=== PATIENT | female | born 1960 | race Caucasian/White ===

== ENCOUNTER → 2023-05-17 | Outpatient (CLI) | payer MEDICARE, MEDICAID, SELFPAY ==
--- NOTE | 2023-05-17 13:32 | US_ITS ---
STUDY: RENAL ULTRASOUND - COMPLETE REASON FOR EXAM: Female, 63 years old. UTI TECHNIQUE: Ultrasound evaluation of the kidneys was performed with real-time and static freire-scale imaging. COMPARISON: None. FINDINGS: RIGHT KIDNEY: with mild renal atrophy. The right kidney measures 7.9 cm x 4.1 cm x 3.6 cm. There is diffuse thinning of the renal cortex. The renal cortex measures 0.8 cm. There is no right renal mass or cyst. There are no right renal calculi. There is no right hydronephrosis. DISTAL RIGHT URETER: There is non-visualization of the distal right ureter. There is no demonstrated right ureterovesical junction calculus. There is a visualized right ureteral jet. LEFT KIDNEY: with mild renal atrophy. The left kidney measures 8.6 cm x 3.6 x 4.7 cm. There is diffuse thinning of the renal cortex. The renal cortex measures 0.7 cm. There is a 1.2 cm x 1 cm x 0.8 cm cyst in the left kidney. There are no left renal calculi. There is no left hydronephrosis. DISTAL LEFT URETER: There is non-visualization of the distal left ureter. There is no demonstrated left ureterovesical junction calculus. There is a visualized left ureteral jet. BLADDER: The distended urinary bladder has a volume of 171 ml. There is a normal wall thickness of the distended urinary bladder. There is no demonstrated mass within the urinary bladder. There are no demonstrated bladder calculi. US/Kidney and Bladder IMPRESSION: Mild degree of bilateral renal atrophy. Small cyst in the left kidney Electronically Signed: Yusef Webster MD at 14:14 EST ,
== END | disposition home or self-care (01) ==
LOC: US 13:30
PROVIDERS: PCP Internal Medicine; Referring Provider Urology; Visit Provider Urology
DX: N39.0 Urinary tract infection, site not specified (principal)
CPT/HCPCS: 76770

== ENCOUNTER 2023-06-23 10:30 | Day surgery (SDC) | payer MEDICARE, MEDICAID, SELFPAY ==
--- NOTE | 2023-06-23 09:14 | DCINST_ITS ---
Discharge Instructions Diet Discharge Diet: No restrictions Activity Discharge Activity: Return to Normal Activity Dressing / Incision Call your doctor if you observe: Fever of 101 or Higher, Inability to urinate and Inability to have a bowel movement Follow Up Care Please Follow Up With: Tyra Briggs MD When: The office will call the patient to make follow-up arrangements. Test Results: Test results from this visit will be discussed in further detail at your follow- up appointment, if applicable. Discharge Plan Admission Attending Provider: Tyra Briggs Primary Care Provider: Tim Sheridan Discharge Orders/Prescriptions Prescriptions: Continued hydroxyzine pamoate 50 mg capsule 50 mg PO QHS Patient Comments: TAKE 1 CAPSULE UP TO 3 TIMES PER DAY NEEDED FOR ANXIETY ibuprofen 600 mg tablet 600 mg PO TID PRN PRN (Reason: pain) Patient Comments: TAKE 1 TABLET BY MOUTH THREE TIMES A DAY WITH FOOD OR MILK NEEDED FOR 30 DAYS nitrofurantoin monohyd/m-cryst 100 mg capsule 100 mg PO QHS Patient Comments: TAKE 1 CAPSULE BY MOUTH TWICE A DAY Probiotic Acidophilus 250 million cell capsule 500 mmu cells PO DAILY cranberry 500 mg capsule 500 mg PO BID Rx Instructions: administer with meals ascorbic acid (vitamin C) [C Complex] 500 mg tablet extended release 500 mg PO DAILY Referrals / Follow Up: Tim Sheridan MD [Primary Care Provider] - Disposition Disposition (needs filled in before D/C Order can be placed): Home, Self Care
--- NOTE | 2023-06-23 09:15 | OP.PCM_ITS ---
Report of Operation Date of Procedure: 06/23/23 Pre-Operative Diagnosis: Urethral stricture, urinary tract infections Post-Operative Diagnosis: Same Surgery/Procedure Performed:: Urethral dilation, cystourethroscopy Surgeon: Tyra Briggs Type of Anesthesia: MAC Description of Procedure: The patient is a 63-year-old female with a history of urinary tract infections. When in office cystoscopy was attempted, it was unsuccessful secondary to a urethral stricture. The patient agreed to proceed with urethral dilation and evaluation under anesthesia. Informed consent was obtained. The patient was taken to the operating room and placed on the operating room table. Anesthesia monitored the head, neck, airway, IV access and vital signs throughout the case. Once anesthesia was appropriately administered, the patient was placed into dorsolithotomy position and was prepped and draped in usual sterile fashion. The urethra was dilated sequentially starting with 12 [place] sound and ending at 24 [place] sound. At this time the cystoscope easily passed through the urethra into the urinary bladder. The bladder mucosa was visualized in its entirety revealing no evidence of mass, erythema, ulceration or foreign body. The ureteral orifices were located in the correct anatomic position. At this time the patient's bladder was emptied and the cystoscope was removed. The patient tolerated the procedure well. She was awakened and taken to the recovery room in good condition. There were no complications during the procedure. Grafts/Implants Used: None Complications None Admit VTE Documentation VTE Present on Admission: Yes VTE Mechan Device Prophylaxis: SCD's VTE Pharm Prophylaxis ordered?: No Reason prophylaxis not ordered:: Treatment Not Indicated
--- NOTE | 2023-06-23 10:39 | EKG12_ITS ---
Test Reason : PRE OP Blood Pressure : / mmHG Vent. Rate : 083 BPM Atrial Rate : 083 BPM P-R Int : 134 ms QRS Dur : 074 ms QT Int : 410 ms P-R-T Axes : 000 042 007 degrees QTc Int : 481 ms Normal sinus rhythm Septal infarct , age undetermined Abnormal ECG No previous ECGs available Confirmed by SANJUANA MATOS, TASHA ([id number]), sound editor CINDY GEORGE ([id number]) on 06/24/2023 10:55:17 AM Referred By: Tyra Briggs Confirmed By:TASHA WEI MD
[2023-06-23] MEDS: Ciprofloxacin 400 MG/200 ML BAG 200 MG IV (11:04)
[2023-06-23] MEDS: Lactated Ringers 1,000 ML 15 ML IV (11:04)
[2023-06-23 11:05] VITALS: BP 118/81; PULSE 94; RESP 18; TEMP 36.4; O2SAT 99; BMI 23.9
[2023-06-23 11:09] LABS: Hematocrit 38.7 % (37-47); Hemoglobin 12.1 g/dL (12.0-15.0); Mean Corp Hgb Conc 31.3 g/dL (32-36); Mean Corpuscular Hgb 28.3 pg (27.0-32.0); Mean Corpuscular Volume 90.6 fL (81-99); Mean Platelet Vol. 9.5 fl (6.2-12.0); Platelet Count 316 K/mm3 (150-450); RBC Distribution Width CV 13.4 % (11.6-14.6); RBC Distribution Width SD 44.5 fl (35.1-43.9); Red Blood Count 4.27 M/mm3 (4.2-5.4); White Blood Count 7.8 K/mm3 (4.4-11.0)
[2023-06-23 11:22] LABS: Anion Gap 4 (5-15); BUN 19 mg/dL (7-18); BUN/Creat Ratio 21.3 RATIO (10-20); Chloride 110 mmol/L (98-107); Creatinine, Serum 0.89 mg/dL (0.55-1.02); EST Glomerular Filtration Rate 67 mL/min (>60); Est Glom Filt Rate - Afr Amer 82 mL/min (>60); Estimated Creatinine Clearance 49.84 ml/min; Glucose 109 mg/dL (74-106); Potassium 4.3 mmol/L (3.5-5.1); Sodium Level 141 mmol/L (136-145)
[2023-06-23 12:26] VITALS: BP 118/81; BP 146/80; PULSE 99; RESP 16; TEMP 36.4; O2SAT 100
[2023-06-23 12:30] VITALS: BP 106/77; BP 118/81; PULSE 96; RESP 18; O2SAT 99
[2023-06-23 12:35] VITALS: BP 109/85; BP 118/81; PULSE 92; RESP 16; O2SAT 98
[2023-06-23 12:41] VITALS: BP 109/85; BP 118/81; PULSE 93; RESP 16; TEMP 36.8; O2SAT 94
[2023-06-23 13:03] VITALS: BP 118/81
== END 2023-06-23 13:28 | disposition home or self-care (01) ==
LOC: SDC 10:35 → AC 10:35
PROVIDERS: PCP Internal Medicine; Referring Provider Urology; Visit Provider Urology
PROC: 0TBB8ZX Excision of Bladder, Via Natural or Artificial Opening Endoscopic, Diagnostic (ICD-10-PCS; CPT 53665; principal; 2023-06-23 12:30)
DX: N35.92 Unspecified urethral stricture, female (principal); N39.0 Urinary tract infection, site not specified; K21.9 Gastro-esophageal reflux disease without esophagitis
CPT/HCPCS: 53665; 00910; 80048; 85027; 93005; J7120; J0744; J2405